=== PATIENT | female | born 1975 | race African-American/Black ===

== ENCOUNTER 2020-02-07 18:15 | Emergency (ER) | payer MEDICAID ==
[~2020-02-07] VITALS: Ht 170.2 cm; Wt 77.1 kg
[2020-02-07 19:01] VITALS: BP 118/81
[2020-02-07] MEDS ORDERED: LIDOCAINE 1% HCL (LOCAL ANESTH.) INJ 20ML MDV IJ ONE (20:30)
== END 2020-02-07 21:43 | disposition home or self-care (01) ==
LOC: ER 18:15
DX: S61.211A Laceration without foreign body of left index finger without damage to nail, initial encounter (principal); Z88.8 Allergy status to other drugs, medicaments and biological substances; W27.2XXA Contact with scissors, initial encounter; Y93.89 Activity, other specified; Y92.89 Other specified places as the place of occurrence of the external cause; Y99.8 Other external cause status
CPT/HCPCS: 12001; 99283; J2001

== ENCOUNTER 2023-03-03 22:21 | Emergency (ER) | payer MEDICAID ==
[~2023-03-03] VITALS: Ht 170.2 cm; Wt 82.2 kg
[2023-03-04] MEDS ORDERED: ACETAMINOPHEN 325 MG TAB PO ONE (03:15)
[2023-03-04] MEDS ORDERED: IBUP-1456 PO (03:24)
[2023-03-04 04:55] VITALS: BP 119/78; PULSE 67; RESP 16; TEMP 97.8; O2SAT 98
== END 2023-03-04 04:55 | disposition home or self-care (01) ==
LOC: ER 22:21
DX: G43.909 Migraine, unspecified, not intractable, without status migrainosus (principal); Z98.890 Other specified postprocedural states
CPT/HCPCS: 70450